=== PATIENT | male | born 1965 | race Caucasian/White ===

== ENCOUNTER 2017-02-19 14:50 | Inpatient (IN) | payer OTHER ==
--- NOTE | ~2017-02-19 | PN ---
Unit #: [id number] #: [id number] Patient: SHARDA YENN [id number] [facility] [address] [place] [address] [id number] I MR#: [id number] NAME: SHARDA YEN ROOM: P214 Age: 52 Sex: M Admission Date: 02/19/2017 : 1965 Attending Physician: Isela Chavez M.D. Admitting Physician: Isela Chavez M.D. Primary Care Physician: Primary Care Physician Randi VANG NOTES DATE 02/21/2017 DISCUSSION Mr. Yen is a 52-year-old, white male with alcohol dependence who was seen today and chart was reviewed and case was discussed with the staff. He has been anxious, withdrawn, rather seclusive to himself and appears to be in distress and discomfort as he detoxes. Meanwhile, he has been taking the medication and tolerating them fairly well with no reported side effects. MENTAL STATUS EXAM Middle-aged white male who was casually dressed with fair personal hygiene, appears to be in no acute distress or discomfort. He was awake and alert on interaction with intact orientation. His mood was anxious with congruent affect. He denies any suicidal or homicidal ideation. Also, denies any auditory or visual hallucinations. His insight and judgement remains slightly impaired. TREATMENT PLAN 1. We will continue him on his current medications and treatment protocol. We will monitor his response to the medication and make further adjustments as needed. 2. We will continue to follow up. Dictated by... Leonel Gonzalez/kimmy TD: 02/24/2017 23:16 JOB #: [id number] Unit #: [id number] #: [id number] Patient: SHARDA YEN WINDY PROGRESS NOTES Page 1 of 1 X Isela Chvaez MD PROGRESS NOTE
--- NOTE | ~2017-02-19 | A ---
[facility] Nutrition Therapy DATE: 02/20/17 Patient: SHARDA YEN Physician: IGOR Address: [address] [place] [address] Room/Bed: [address], Zip: [place] [address] Admit Date: 02/19/17 Date of : [birth year] Height: 6 1 Weight: [phone] NUTRITIONAL ASSESSMENT: REASON: NUTRITIONAL RISK POINT- UNINTENTIONAL WEIGHT LOSS PATIENT ADMITTED FOR ETOH DETOX PMH: HEP C, HX WITHDRAWAL SEIZURES Anthropometrics: HT: 6'1", WT: 180#, BMI: 23.7 Labs: NO LABS AVAILABLE Meds: DESYREL, DETOX PROTOCOL Assessment: PATIENT IS A 52 Y/O MALE ADMITTED FOR ETOH DETOX. PATIENT IS CURRENTLY UNEMPLOYED, HOMELESS, SMOKES 1 PPD, DRINKS A FIFTH ETOH DAILY FOR LAST 4 YEARS, AND HAS A HX OF COCAINE USE. PATIENT STATED A POOR APPETITE WITH A 10# WEIGHT LOSS OVER LAST SEVERAL MONTHS. WEIGHT HX PER [facility] SHOWS NO SIGNIFICANT WEIGHT CHANGES. PATIENT HAS A HX OF INPATIENT CHEMICAL DEPENDENCY TREATMENTS. THERE ARE NO SKIN OR GI ISSUES NOTED ATT. HIS BMI IS WITHIN A HEALTHY RANGE OF 19-25. HE IS ON A REGULAR DIET WITH NO CAFFEINE. Dx: NO NUTRITION DX Intervention: REGULAR DIET, NO CAFFEINE, MEDS PER MD, DETOX Monitoring, Evaluation and Goals: 1. ADEQUATE PO INTAKES >50% OF MEALS 2. PREVENT, CORRECT MICRO/MACRO NUTRIENT DEFICIENCIES 3. MAINTAIN CURRENT WEIGHT MONITOR: WEIGHTS, LABS, PO/FLUID INTAKES Recommendations: 1. CONTINUE REGULAR DIET WITH NO CAFFEINE TOLERATED. IF PATIENT HAS C/O HUNGER OFFER SNACKS BETWEEN MEALS. 2. ENCOURAGE ADEQUATE PO AND FLUID INTAKES RD TO F/U PER PROTOCOL AND PRN R/T PATIENT NOT AT NUTRITIONAL RISK ATT [facility] Nutrition Therapy DATE: 02/20/17 Patient: SHARDA YEN Physician: IGOR Address: [address] [place] [address] Room/Bed: [address], Zip: [place] [address] Admit Date: 02/19/17 Date of : [birth year] Height: 6 1 Weight: [phone] Respectfully, KAR MOORE, RD, LD [facility] cc: client file
--- NOTE | ~2017-02-19 | DS ---
Unit #: [id number] #: [id number] Patient: [facility] RAMÍREZ [id number] [facility] [address] [place] [address] [id number] I MR#: [id number] NAME: SHARDA YENN ROOM: P214 Age: 52 Sex: M Admission Date: 02/19/2017 : 1965 Discharge Date: Attending Physician: Isela Chavez M.D. Primary Care Physician: Primary Care Physician No DISCHARGE SUMMARY IDENTIFYING DATA Mr. Yen is a 52-year-old single white male, who is a resident of [place], [place] and was transferred to us from [facility] on a voluntary basis and with a blood alcohol level of 0.267. DISCHARGE DIAGNOSES Psychiatric: Alcohol dependence, moderate and acute withdrawals; alcohol-induced mood disorder. Medical: Hepatitis C. Stressors: Moderate psychosocial stressors. HISTORY OF PRESENT ILLNESS Please see initial psychiatric evaluation for details. PAST PSYCHIATRIC HISTORY Please see initial psychiatric evaluation for details. PAST MEDICAL HISTORY Please see initial psychiatric evaluation for details. HOSPITAL COURSE The patient was admitted to the adult chemical dependency unit at [facility] and was oriented to the hospital environment. Routine p.r.n. medications were initiated, and he was started back on his home medication and alcohol detox protocol was initiated and was closely monitored. He was taking the medications regularly, was tolerating them fairly well and able to show a decent and therapeutic response and was able to come out of the detox without any complications and was willing to continue treatment on an outpatient basis and as such, it was decided he will be discharged home and will continue treatment on an outpatient basis. DISCHARGE MEDICATIONS None. DISCHARGE CONDITION Stable. PROGNOSIS Fair. Dictated by... Isela Chavez M.D. Unit #: [id number] #: [id number] Patient: SHARDA YEN RAMÍREZ IAA/modl TD: 02/25/2017 06:55 JOB #: [id number] DISCHARGE SUMMARY Page 1 of 1 X Isela Chavez MD X DISCHARGE SUMMARY
--- NOTE | ~2017-02-19 | PA ---
Unit #: [id number] #: [id number] Patient: SHARDA YEN RAMÍREZ [id number] [facility] [address] [place] [address] [id number] I MR#: [id number] NAME: SHARDA YEN RAMÍREZ ROOM: P214 Age: 52 Sex: M Admission Date: 02/19/2017 : 1965 Date of Assessment: 02/19/2017 Attending Physician: Isela Chavez M.D. Admitting Physician: Isela Chavez M.D. PSYCHIATRIC ASSESSMENT DATE OF SERVICE 02/19/2017. IDENTIFYING DATA Mr. Yen is a 52-year-old single white male, who is a resident of [place], [place] and was transferred to us from [facility] on voluntary basis, with a blood alcohol level of 0.267. CHIEF COMPLAINT "I've been drinking a fifth of alcohol daily." HISTORY OF PRESENT ILLNESS Mr. Yen is a 52-year-old white male with a history of alcohol dependence, who was self-referred to the hospital emergency room. Upon presentation, he had a blood alcohol level of 0.267 and stated that he has been drinking a fifth of alcohol daily for approximately 4 years and he wants to detox and change his environment that he has been on the streets on and off for 30 years and that he has been feeling wanting to be and denied any suicidal or homicidal thoughts or plan. As stated, he was concerned about detoxing as he has a history of withdrawal seizures when he tries to stop drinking. His last drink was on the night before and initially upon presentation, his blood alcohol level was 433, which later dropped to 267 and he was seen to be still compromised, reporting increasing depression, anxiety, feelings of hopelessness and having history of withdrawal seizures and as such, recommendation for medical detox was made and the patient was medically cleared in the emergency room and then transferred to us. SUBSTANCE ABUSE HISTORY The patient reports history of experimentation and abuse of cannabis, but alcohol has been his drug of choice. He reports that he has been drinking since he was 12 years old and currently has been drinking a fifth of liquor on a daily basis. PAST PSYCHIATRIC HISTORY The patient has had a history of inpatient psychiatric and [facility] as well as at the [facility] in [place], [place]. Review of the medical records indicate currently he is not active in any treatment program, is not seeing a psychiatrist, and is not taking any psychotropic medications. PAST MEDICAL HISTORY Hepatitis C. Unit #: [id number] #: [id number] Patient: SHARDA YEN MARGARITA Merchant. PERSONAL AND SOCIAL HISTORY A 52-year-old white male, who reports that he is single, unemployed, and essentially homeless and has poor social support system. MENTAL STATUS EXAMINATION Middle-aged white male, who was casually dressed with fair personal hygiene, appears to be in no acute distress or discomfort. He was awake and alert on interaction with intact orientation to time, place, and person. His mood was anxious with a congruent affect. His speech was slow and goal directed. He reports having suicidal ideations, but denies any homicidal ideations, and also denies any auditory or visual hallucinations. His insight and judgment remain significantly impaired. DIAGNOSTIC IMPRESSION Psychiatric: Alcohol dependence, moderate and acute withdrawals; alcohol-induced mood disorder. Medical: Hepatitis C. Stressors: Moderate psychosocial stressors. TREATMENT PLAN 1. The patient has presented with a history of mood disorder and substance abuse and has been decompensating and will need inpatient hospitalization for detoxification, safety, and stabilization. We will start him back on his home medications. We will adjust the medications and monitor response. 2. Supportive therapy was provided to the patient. 3. Safe, structured, and nourishing environment will be provided. ESTIMATED LENGTH OF STAY 5 to 7 days. ABILITY TO HELP SELF Limited. WILLINGNESS TO HELP SELF The patient appears to be willing to help self. STRENGTHS 1. Communicative. 2. Cooperative. PROBLEMS 1. Chronic dysphoric symptoms. 2. Chronic chemical dependency. 3. Poor social support system. DISCHARGE CRITERIA This will be contingent upon the patient's ability to go through detox without having any significant withdrawal symptoms and his ability to stay safe to himself, particularly after discharge from the hospital. Dictated by... Unit #: [id number] #: [id number] Patient: SHARDA YENLeonel Benavides/neal TD: 02/20/2017 08:11 JOB #: [id number] PSYCHIATRIC ASSESSMENT Page 1 of 1 X Isela Chavez MD PSYCHIATRIC ASSESSMENT
--- NOTE | ~2017-02-19 | PN ---
Unit #: [id number] #: [id number] Patient: SHARDA YEN RAMÍREZ [id number] [facility] [address] [place] [address] [id number] I MR#: [id number] NAME: SHARDA YEN ROOM: P214 Age: 52 Sex: M Admission Date: 02/19/2017 : 1965 Attending Physician: Isela Chavez M.D. Admitting Physician: Isela Chavez M.D. Primary Care Physician: Primary Care Physician Randi TEMPLE PROGRESS NOTES DATE 02/24/2017 DISCUSSION Sharda Yen is a 52-year-old male seen on 02/24/2017. The patient interviewed, chart reviewed. Obtained information from nursing staff. The patient was admitted with alcohol detox. The patient's vital signs stable 98.4, 84, 102/61. The patient denied any complaints. Maintain safe behavior. Complete review of systems unremarkable. MENTAL STATUS EXAMINATION General appearance, the patient dressed casually. Attention span and concentration fair. Oriented to time, place and person. Mood and affect labile. Speech monotone. Thought process concrete. The patient denied any thoughts of harming self or others or any psychotic symptoms. Recent and remote memory poor. Insight and judgement poor. DIAGNOSES Alcohol use disorder severe ASSESSMENT/PLAN Advise to continue with current treatment on the inpatient unit. If needed consider further adjustment of medication. Dictated by... Leonel Argueta/kimmy TD: 02/27/2017 04:01 JOB #: [id number] Unit #: [id number] #: [id number] Patient: SHARDA YENN WINDY PROGRESS NOTES Page 1 of 1 X Reno Vera MD PROGRESS NOTE
--- NOTE | ~2017-02-19 | HP ---
Unit #: [id number] #: [id number] Patient: SHARDA YEN RAMÍREZ [id number] [facility] [address] [place] [address] [id number] I MR#: [id number] NAME: SHARDA YEN RAMÍREZ ROOM: P214 Age: 52 Sex: M Admission Date: 02/19/2017 : 1965 Attending Physician: Isela Chavez M.D. Admitting Physician: Isela Chavez M.D. Primary Care Physician: Primary Care Physician No HISTORY AND PHYSICAL HISTORY OF PRESENT ILLNESS Sharda is a 52 year old admitted to [address] [place] [address] because of his continued abuse of alcohol. PAST MEDICAL HISTORY 1. Long history of alcohol abuse. 2. History of withdrawal seizures. 3. Hepatitis C. PAST SURGICAL HISTORY Fractured skull requiring placement of a plate. Right arm surgery. ALLERGIES Keflex SOCIAL HISTORY Smokes one pack per day. Drinks at least a fifth of liquor on a daily basis and admits to a history of illicit substance abuse. FAMILY HISTORY Medically noncontributory. REVIEW OF SYSTEMS CONSTITUTIONAL: No fever or chills. HEENT: Denies any sore throat, ear pain or runny nose. CARDIOVASCULAR: Denies chest pain, irregular heart rhythm or palpitations. CHEST: Denies shortness of breath or cough. No hemoptysis. GASTROINTESTINAL: Denies nausea, vomiting, diarrhea or chronic constipation. ENDOCRINE: Denies history of increased thirst or urination. No recent significant weight loss or gain. GENITOURINARY: Denies dysuria, frequency, or hematuria. SKIN: Denies any rashes. HEMATOLOGIC: Denies history of increased bleeding or bruising. MUSCULOSKELETAL: Denies any hot, swollen joints. No generalized muscle pain. NEUROLOGIC: Denies problems with vision or speech. No frequent, severe headaches. No numbness, tingling or weakness in any extremities. Denies loss of bladder or bowel control. CURRENT MEDICATIONS Unit #: [id number] #: [id number] Patient: SHARDA YEN RAMÍREZ Detox protocol PHYSICAL EXAMINATION GENERAL: Alert, appearing much older than his stated age of 52, in no apparent distress. VITAL SIGNS: Blood pressure 134/84, heart rate 96, respirations 16, temperature 98.6. WEIGHT: 180 pounds. HEIGHT: 6'1". SKIN: Warm and dry without rash or lesion. HEENT: Normocephalic. TMs not viewed. Oral and nasal passages clear. Conjunctivae clear. Pupils equal, round and reactive to light and accommodation. Extraocular movements intact. NECK: Supple without lymphadenopathy or thyromegaly. HEART: Regular rate and rhythm without murmur. LUNGS: Clear. ABDOMEN: Soft, nontender. : Not done. EXTREMITIES: No evidence of cyanosis, clubbing or edema. Moves all extremities without focal deficit. NEUROLOGICAL: Grossly within normal limits. Cranial Nerves: II: Visual joy are intact. III, IV AND : Extraocular movements are intact. Pupils are equal, round and reactive to light. V: Facial sensation is grossly normal. VII: Facial movements and expression are normal. VIII: Auditory acuity grossly intact. IX, X: Uvula is midline. Phonation is normal. XI: Patient shrugs shoulders and turns head normally. XII: Tongue protrudes in the midline. Sensory and Motor Function: Sensory and motor sensation is grossly normal. Motor: moves all extremities well. Coordination: Gait is normal. Deep Tendon Reflexes: Intact. IMPRESSION Psychiatric admission RECOMMENDATIONS PSYCHIATRIC: Per psychiatrist. MEDICAL: I see no contraindications to participating in facility's activities. MEDICAL PROGNOSIS Good. MEDICAL CONDITION Stable. Dictated by... Yenny Mark PJaylaA.-Adrianne. for Leonel Sumner/kimmy TD: 02/19/2017 21:51 Unit #: [id number] #: [id number] Patient: SHARDA YEN RAMÍREZ JOB #: [id number] HISTORY AND PHYSICAL Page 1 of 1 X Yenny Mark X HISTORY AND PHYSICAL
--- NOTE | ~2017-02-19 | PN ---
Unit #: [id number] #: [id number] Patient: SHARDA YENN [id number] [facility] [address] [place] [address] [id number] I MR#: [id number] NAME: SHARDA YEN ROOM: P214 Age: 52 Sex: M Admission Date: 02/19/2017 : 1965 Attending Physician: Isela Chavez M.D. Admitting Physician: Isela Chavez M.D. Primary Care Physician: Primary Care Physician Randi VANG NOTES DATE 02/22/2017 DISCUSSION Mr. Yen is a 52-year-old white male with alcohol dependence and mood disorder who was seen today and chart was reviewed and case was discussed with the staff. He remains anxious, withdrawn, tremulous and seclusive to himself and unsteady on his feet though he has been cooperative with treatment recommendations and has been taking medications and tolerating them fairly well with no reported side effects. MENTAL STATUS EXAMINATION Middle-aged white male who was casually dressed with fair personal hygiene and appears to be in slight distress and discomfort. He was awake and alert on interaction with intact orientation. His mood was anxious and depressed with congruent affect. His speech is slow and goal-directed. He denies any suicidal or homicidal ideation and also denies any auditory or visual hallucinations. His insight and judgement remains slightly impaired. TREATMENT PLAN 1. Will continue his current medications and treatment protocol and will monitor his response and make further adjustments as needed. 2. Will continue to follow up. Dictated by... Leonel Gonzalez/tony TD: 02/25/2017 09:22 JOB #: [id number] Unit #: [id number] #: [id number] Patient: SHARDA YEN WINDY PROGRESS NOTES Page 1 of 1 X Isela Chavez MD PROGRESS NOTE
--- NOTE | ~2017-02-19 | PN ---
Unit #: [id number] #: [id number] Patient: SHARDA YENN [id number] [facility] [address] [place] [address] [id number] I MR#: [id number] NAME: SHARDA YEN ROOM: P214 Age: 52 Sex: M Admission Date: 02/19/2017 : 1965 Attending Physician: Isela Chavez M.D. Admitting Physician: Isela Chavez M.D. Primary Care Physician: Primary Care Physician Randi VANG NOTES DATE OF SERVICE 02/20/2017 DISCUSSION Mr. Yen is a 52-year-old white male who was seen today. Chart was reviewed and case was discussed with the staff. He has been anxious and withdrawn though has not shown any agitation or irritability and has been cooperative with treatment recommendations and has been taking the medications and tolerating them fairly well. MENTAL STATUS EXAMINATION Middle-aged white male who is casually dressed with fair personal hygiene, appears to be in slight distress or discomfort. He was awake and alert with impaired attention and concentration. His mood is anxious with congruent affect. His speech is slow and restricted in content. He denies any suicidal or homicidal ideations. His insight and judgment remain slightly impaired. TREATMENT PLAN 1. We will continue him on his current medications and treatment protocol. We will monitor his response to medication and make further adjustments as needed. 2. We will continue to follow up. Dictated by... Isela Chavez M.D. IAA/bzg TD: 02/22/2017 08:24 JOB #: [id number] Unit #: [id number] #: [id number] Patient: SHARDA YEN WINDY PROGRESS NOTES Page 1 of 1 X Isela Chavez MD PROGRESS NOTE
--- NOTE | ~2017-02-19 | PN ---
Unit #: [id number] #: [id number] Patient: SHARDA YEN RAMÍREZ [id number] [facility] [address] [place] [address] [id number] MR#: [id number] NAME: SHARDA YEN RAMÍREZ ROOM: P214 Age: 52 Sex: M Admission Date: 02/19/2017 : 1965 Attending Physician: Isela Chavez M.D. Admitting Physician: Isela Chavez M.D. Primary Care Physician: Primary Care Physician Randi TEMPLE PROGRESS NOTES DATE 02/23/2017 DISCUSSION Sharda Yen is a 52-year-old white male seen on 02/23/2017. The patient compliant, cooperative during interview. Mood sad, dysphoric. The patient was admitted with alcohol intoxication. The patient reported still having withdrawal symptoms. Mood sad, dysphoric. The patient's vital signs 97.7, 81, 111/80. Complete review of systems unremarkable. MENTAL STATUS EXAMINATION General appearance, the patient dressed in hospital attire. Attention span and concentration poor. Oriented to place and person. Mood and affect sad, depressed. Speech monotone. Thought process concrete. The patient denied any thoughts of harming self or others or any psychotic symptoms. Recent and remote memory poor. Insight and judgement poor. DIAGNOSES Alcohol use disorder severe ASSESSMENT/PLAN Advise to continue with current medication and therapeutic protocol. If needed consider further adjustment of medication. Dictated by... Leonel Argueta/kimmy TD: 02/26/2017 04:46 JOB #: [id number] [facility] PROGRESS NOTES Page 1 of 1 X Reno Vera MD PROGRESS NOTE
== END 2017-02-25 10:06 | disposition home or self-care (01) | DRG 897 ==
LOC: P2S 14:50
PROC: HZ2ZZZZ Detoxification Services for Substance Abuse Treatment (ICD-10-PCS; principal; 2017-02-19)
DX: F10.239 Alcohol dependence with withdrawal, unspecified (principal); F10.24 Alcohol dependence with alcohol-induced mood disorder; B19.20 Unspecified viral hepatitis C without hepatic coma; F17.210 Nicotine dependence, cigarettes, uncomplicated
CPT/HCPCS: 86592

== ENCOUNTER 2017-03-22 04:00 | Inpatient (IN) | payer OTHER ==
--- NOTE | ~2017-03-22 | PN ---
Unit #: [id number] #: [id number] Patient: SHARDA YENN [id number] [facility] [address] [place] [address] [id number] MR#: [id number] NAME: SHARDA YEN ROOM: P212 Age: 52 Sex: M Admission Date: 03/22/2017 : 1965 Attending Physician: Isela Chavez M.D. Admitting Physician: Isela Chavez M.D. Primary Care Physician: Primary Care Physician Randi VANG NOTES DATE March 25, 2017 DISCUSSION Mr. Yen is a 52-year-old white male, who was seen today and chart was reviewed and the case was discussed with the staff. He has been anxious, withdrawn, and rather seclusive to himself. Meanwhile, he has been cooperative with the treatment recommendations and he has been taking the medications and tolerating them fairly well with no reported side effects. MENTAL STATUS EXAMINATION Middle-aged white male, who was casually dressed with fair personal hygiene and appears to be in no acute distress or discomfort. He was awake and alert on interaction with intact orientation. His mood is anxious with a congruent affect. He denies any suicidal or homicidal ideations, and also denies any auditory or visual hallucinations. His insight and judgment remain slightly impaired. TREATMENT PLAN 1. We will continue him on his current medications and treatment protocol, and will monitor his response to the medications, and make further adjustments as needed. 2. We will continue to followup. Dictated by... Leonel Gonzalez/fátima TD: 03/25/2017 12:04 JOB #: [id number] Unit #: [id number] #: [id number] [facility]: [facility] PROGRESS NOTES Page 1 of 1 X Isela Chavez MD PROGRESS NOTE
--- NOTE | ~2017-03-22 | HP ---
Unit #: [id number] #: [id number] Patient: SHARDA YEN RAMÍREZ [id number] [place] [address] [id number] MR#: [id number] NAME: SHARDA YEN RAMÍREZ ROOM: P212 Age: 52 Sex: M Admission Date: 03/22/2017 : 1965 Attending Physician: Isela Chavez M.D. Admitting Physician: Isela Chavez M.D. Primary Care Physician: Primary Care Physician No HISTORY AND PHYSICAL HISTORY OF PRESENT ILLNESS The patient is a 52-year-old male who states that he is here due to alcohol detox. He drinks approximately 1/2 gallon of vodka per day. PAST MEDICAL HISTORY None. PAST SURGICAL HISTORY Significant for metal plates in head and arm. ALLERGIES Patient states to Keflex. SOCIAL HISTORY Positive for smoking, alcohol and cocaine. FAMILY HISTORY Noncontributory. REVIEW OF SYSTEMS CONSTITUTIONAL: No fever or chills. HEENT: Denies any sore throat, ear pain or runny nose. CARDIOVASCULAR: Denies chest pain, irregular heart rhythm or palpitations. CHEST: Denies shortness of breath or cough. No hemoptysis. GASTROINTESTINAL: Denies nausea, vomiting, diarrhea or chronic constipation. ENDOCRINE: Denies history of increased thirst or urination. No recent significant weight loss or gain. GENITOURINARY: Denies dysuria, frequency, or hematuria. SKIN: Denies any rashes. HEMATOLOGIC: Denies history of increased bleeding or bruising. MUSCULOSKELETAL: Denies any hot, swollen joints. No generalized muscle pain. NEUROLOGIC: Denies problems with vision or speech. No frequent, severe headaches. No numbness, tingling or weakness in any extremities. Denies loss of bladder or bowel control. CURRENT MEDICATIONS None. PHYSICAL EXAMINATION GENERAL: Alert, oriented, in no acute distress. VITAL SIGNS: Temperature 97.1, heart rate 84, respirations 20, blood Unit #: [id number] #: [id number] Patient: SHARDA YEN pressure 137/90. HEIGHT: 6 feet. WEIGHT: 180 pounds. SKIN: Warm and dry without rash or lesion. Abrasion to the left lower extremity and a scar to the right arm. HEENT: Normocephalic. TMs not viewed. Oral and nasal passages clear. Conjunctivae clear. PERRLA. EOMs intact. NECK: Supple without lymphadenopathy or thyromegaly. HEART: Regular rate and rhythm without murmur. LUNGS: Clear. ABDOMEN: Soft, nontender, without masses or hepatosplenomegaly. : Not done. EXTREMITIES: No evidence of cyanosis, clubbing or edema. Moves all without focal deficit. NEUROLOGICAL: Grossly within normal limits. Cranial Nerves: II: Visual joy are intact. III, IV AND : Extraocular movements are intact. Pupils are equal, round and reactive to light. V: Facial sensation is grossly normal. VII: Facial movements and expression are normal. VIII: Auditory acuity grossly intact. IX, X: Uvula is midline. Phonation is normal. XI: Patient shrugs shoulders and turns head normally. XII: Tongue protrudes in the midline. Sensory and Motor Function: Sensory and motor sensation is grossly normal. Motor: moves all extremities well. Coordination: Gait is normal. Deep Tendon Reflexes: Intact. IMPRESSION Psychiatric admission. RECOMMENDATIONS PSYCHIATRIC: Per psychiatrist. MEDICAL: No contraindications to participate in facility's activities. MEDICAL PROGNOSIS Good. Dictated by... Lucrecia Liu/tony TD: 03/23/2017 20:36 JOB #: [id number] HISTORY AND PHYSICAL Page 1 of 1 X Farrah Lara APR X HISTORY AND PHYSICAL
--- NOTE | ~2017-03-22 | PN ---
Unit #: [id number] #: [id number] Patient: SHARDA YENN [id number] [facility] [address] [place] [address] [id number] I MR#: [id number] NAME: SHARDA YEN ROOM: P212 Age: 52 Sex: M Admission Date: 03/22/2017 : 1965 Attending Physician: Isela Chavez M.D. Admitting Physician: Isela Chavez M.D. Primary Care Physician: Primary Care Physician Randi VANG NOTES DATE March 24, 2017 DISCUSSION Mr. Yen is a 52-year-old white male, who was seen today and chart was reviewed and the case was discussed with the staff. He has been anxious, withdrawn, and rather seclusive to himself. Meanwhile, he has been cooperative with the treatment recommendations and he has been taking the medications and tolerating them fairly well. MENTAL STATUS EXAMINATION Middle-aged white male, who was casually dressed with fair personal hygiene and appears to be in no acute distress or discomfort. He was awake and alert on interaction with intact orientation. His mood is anxious with a congruent affect. He denies any suicidal or homicidal ideations. His insight and judgment remain slightly impaired. TREATMENT PLAN 1. We will continue him on his current medications and treatment protocol, and will monitor his response to the medications, and make further adjustments as needed. 2. We will continue to followup. Dictated by... Leonel Gonzalez/fátima TD: 03/25/2017 11:43 JOB #: [id number] Unit #: [id number] #: [id number] Patient: SHARDA YEN WINDY PROGRESS NOTES Page 1 of 1 X Isela Chavez MD PROGRESS NOTE
--- NOTE | ~2017-03-22 | DS ---
Unit #: [id number] #: [id number] Patient: SHARDA YENN [id number] [facility] [address] [place] [address] [id number] MR#: [id number] NAME: SHARDA YENN ROOM: P212 Age: 52 Sex: M Admission Date: 03/22/2017 : 1965 Discharge Date: 03/26/2017 Attending Physician: Isela Chavez M.D. Primary Care Physician: Primary Care Physician No DISCHARGE SUMMARY IDENTIFYING DATA Mr. Yen is a 52-year-old single white male, who is a resident of [place], [place], and is known to us from previous encounter, was transferred to us from [facility] in [place], [place]. DISCHARGE DIAGNOSES Psychiatric: Alcohol dependence, moderate and acute withdrawals; alcohol-induced mood disorder. Medical: Hepatitis C. Stressors: Moderate psychosocial stressors. HISTORY OF PRESENT ILLNESS Please see initial psychiatric evaluation for details. PAST PSYCHIATRIC HISTORY Please see initial psychiatric evaluation for details. PAST MEDICAL HISTORY Please see initial psychiatric evaluation for details. HOSPITAL COURSE The patient [facility] and was oriented to the hospital environment. Routine p.r.n. medications were initiated, and he was started on alcohol detox protocol and was closely monitored. He was taking the medications regularly and was tolerating them fairly well and was able to show a decent and therapeutic response and was able to come out of the detox without any complications and was wanting to go home and was willing to continue treatment on an outpatient basis and as such, it was decided that he will be discharged home and will continue treatment on an outpatient basis. DISCHARGE MEDICATIONS None. DISCHARGE CONDITION Stable. PROGNOSIS Fair. Dictated by... Isela Chavez M.D. Unit #: [id number] #: [id number] Patient: SHARDA YEN IAA/modl TD: 03/26/2017 07:04 JOB #: [id number] DISCHARGE SUMMARY Page 1 of 1 X Isela Chvaez MD X DISCHARGE SUMMARY
--- NOTE | ~2017-03-22 | PA ---
Unit #: [id number] #: [id number] Patient: SHARDA YEN RAMÍREZ [id number] [facility] [address] [place] [id number] MR#: [id number] NAME: SHARDA YEN RAMÍREZ ROOM: P212 Age: 52 Sex: M Admission Date: 03/22/2017 : 1965 Date of Assessment: Attending Physician: Isela Chavez M.D. Admitting Physician: Isela Chavez M.D. Primary Care Physician: Primary Care Physician No PSYCHIATRIC ASSESSMENT DATE OF SERVICE 03/23/2017. IDENTIFYING DATA Mr. Yen is a 52-year-old single white male, who is a resident of [place], [place] and is known to us from previous encounter, and was transferred to us from [facility] in [place], [place], where he was brought in with a blood alcohol level of 321. CHIEF COMPLAINT "I've been drinking a fifth a day." HISTORY OF PRESENT ILLNESS Mr. Yen is a 52-year-old white male, who reports that he was sober for 2 days after his last discharge from [facility] on 02/25/2017 and then he has been drinking last couple of days after discharge from the hospital and since then, he has been drinking a fifth on a daily basis and has been endorsing significant withdrawal symptoms and had a CIWA score of 15 upon presentation to the emergency room and did report increasing depression, anxiety, tremors, shakes, and tactile hallucinations and was seen to be in significant distress or discomfort. He was unable to function and has reported that he has long history of suicidal ideation that comes and goes and did report increasing depression, anxiety, restlessness, inability to perform activities of daily living and as such, recommendation for inpatient level of care was made and the patient was transferred to us. SUBSTANCE ABUSE HISTORY The patient reports history of experimentation with cocaine, but alcohol has been his drug of choice and reports that he has been drinking since he was 12 years old and currently has been drinking a fifth on a daily basis. PAST PSYCHIATRIC HISTORY The patient has had history of multiple inpatient chemical dependency treatments including being at [facility], at the [facility] and review of the medical records indicate currently he is not active in any treatment program, is not seeing a psychiatrist, not taking any psychotropic medications. PAST MEDICAL HISTORY Hepatitis C. ALLERGIES Unit #: [id number] #: [id number] Patient: SHARDA YEN Cephalexin. CURRENT MEDICATIONS None. PERSONAL AND SOCIAL HISTORY A 52-year-old white male, who reports that he is single, unemployed, and homeless and has poor social support system. MENTAL STATUS EXAMINATION Middle-aged white male, who was casually dressed with fair personal hygiene, appears to be in no acute distress or discomfort. He was awake and alert on interaction with intact orientation to time, place, and person. His mood was anxious and depressed with a congruent affect. His speech was slow and restricted in content. His thought processes were disorganized with some looseness of associations and flight of ideas. He denies any suicidal or homicidal ideations and also denies any auditory or visual hallucinations. His insight and judgment remain significantly impaired. DIAGNOSTIC IMPRESSION Psychiatric: Alcohol dependence, moderate, in acute withdrawals; alcohol-induced mood disorder. Medical: Hepatitis C. Stressors: Moderate psychosocial stressors. TREATMENT PLAN 1. The patient has presented with history of substance abuse and mood disorder, and has been decompensating and will need inpatient hospitalization for detoxification, safety, and stabilization. We will start him on detox protocol. We will closely monitor for any worsening withdrawal symptoms. 2. Supportive therapy was provided to the patient. 3. Safe, structured, and nourishing environment will be provided. ESTIMATED LENGTH OF STAY 4 to 5 days. ABILITY TO HELP SELF Limited. WILLINGNESS TO HELP SELF The patient appears to be willing to help self. STRENGTHS 1. Communicative. 2. Cooperative. PROBLEMS 1. Chronic dysphoric symptoms. 2. Chronic chemical dependency. 3. Poor social support system. DISCHARGE CRITERIA This will be contingent upon the patient's ability to show resolution of his depression and anxiety and psychosis and his ability to go through detox without having any significant symptoms and his ability to stay safe to himself, particularly after discharge from the hospital. Unit #: [id number] #: [id number] Patient: SHARDA YEN Dictated by..Leonel Degroot/neal TD: 03/24/2017 02:55 JOB #: [id number] PSYCHIATRIC ASSESSMENT Page 1 of 1 X Isela Chavez MD PSYCHIATRIC ASSESSMENT
[2017-03-23 14:04] LABS: BASOPHIL# 0.1 X10e3 (0-0.3); BASOPHIL% 1.3 % (0-2.5); EOSINOPHIL# 0.3 X10e3 (0-0.7); EOSINOPHIL% 5.5 % (0.0-7.0); HEMATOCRIT 41.4 % (38.0-50.0); HEMOGLOBIN 13.6 gm/dL (13.0-16.0); LYMPHOCYTE# 2.6 X10e3 (1.0-3.5); LYMPHOCYTE% 41.2 % (17.0-45.0); MEAN CELL VOLUME 93.4 FL (83-96); MEAN CORPUSCULAR HEMOGLOBIN 30.8 PG (28-34); MEAN CORPUSCULAR HGB CONC 32.9 g/dL (30-36); MEAN PLATELET VOLUME 7.9 FL (6.5-11.5); MONOCYTE# 0.5 X10e3 (0-1.0); MONOCYTE% 7.5 % (3.0-12.0); NEUTROPHIL# 2.8 X10e3 (1.5-7.1); NEUTROPHIL% 44.5 % (40-75); PLATELET COUNT 194 X10e3 (140-420); RED BLOOD COUNT 4.43 X10e (3.90-5.60); RED CELL DISTRIBUTION WIDTH 13.4 % (11.0-15.5); WHITE BLOOD COUNT 6.4 X10e3 (4.0-10.5)
[2017-03-23 14:08] LABS: ALBUMIN SERUM 3.9 g/dL (3.5-5.0); BILIRUBIN,TOTAL 0.9 mg/dL (0.2-2.0); BUN/CREATININE RATIO 14.44; CALCIUM SERUM 8.9 mg/dL (8.4-10.2); CREATININE SERUM 0.9 mg/dL (0.6-1.4); GLOM FILT RATE Estimated 97.2 mL/min (>60); POTASSIUM 3.8 mmol/L (3.5-5.1); PROTEIN TOTAL SERUM 6.5 g/dL (6.0-8.3)
[2017-03-23 14:09] LABS: DIFF IND NO
[2017-03-25 12:46] LABS: URINE APPEARANCE CLEAR; URINE BILIRUBIN NEG (NEG); URINE BLOOD NEG (NEG); URINE COLOR DK YELLOW; URINE GLUCOSE NEG (NEG); URINE KETONE NEG (NEG); URINE LEUKOCYTE ESTERASE NEG (NEG); URINE NITRATE NEG (NEG); URINE PH 5.5 (5-8); URINE PROTEIN NEG (NEG); URINE SPECIFIC GRAVITY 1.021 (1.003-1.035); URINE UROBILINOGEN 0.2 MG/DL (NEG)
[2017-03-25 13:12] LABS: AMPHETAMINE NEG (NEG); BARBITURATES NEG (NEG); BENZODIAZEPINES POS (NEG); COCAINE NEG (NEG); MARIJUANA NEG (NEG); OPIATES NEG (NEG); TRICYCLIC ANTIDEPRESSANTS NEG (NEG); U METHADONE NEG (NEG)
== END 2017-03-26 09:04 | DRG 897 ==
LOC: P2S 18:09
PROVIDERS: Psychiatry & Neurology Psychiatry
PROC: HZ2ZZZZ Detoxification Services for Substance Abuse Treatment (ICD-10-PCS; principal; 2017-03-22)
DX: F10.239 Alcohol dependence with withdrawal, unspecified (principal); F10.24 Alcohol dependence with alcohol-induced mood disorder; B19.20 Unspecified viral hepatitis C without hepatic coma
CPT/HCPCS: 80053; 80307; 81003; 85025; 86592